=== PATIENT | male | born 1960 ===

== ENCOUNTER 2018-01-25 10:34 | Emergency (ER) | payer OTHER ==
[2018-01-25 10:40] VITALS: BMI 27.4
[2018-01-25 10:45] VITALS: BP 141/90; PULSE 74; RESP 18; TEMP 97.7; O2SAT 98
--- NOTE | 2018-01-25 11:30 | C.PDOC ---
History Of Present Illness 57 y/o with no significant PMHx presents for evaluation of left elbow pain and swelling developing since 01/18 after sustained blunt trauma at work. Patient reports he was seen at [facility], had x-ray done, showing no acute fracture. He admits to working since the accident and now the swelling has worsened over the left olecranon. Associated with intermittent tingling over the 4th and 5th left fingers. Otherwise patient denies obvious deformity, weakness, or skin changes to left arm. Time Seen by Provider: 01/25/18 10:57 Chief Complaint (Nursing): Upper Extremity Problem/Injury History Per: Patient History/Exam Limitations: no limitations Onset/Duration Of Symptoms: Days Current Symptoms Are (Timing): Worse Past Medical History Reviewed: Historical Data, Nursing Documentation, Vital Signs Vital Signs: Last Vital Signs Temp 97.7 F 01/25/18 10:40 Pulse 74 01/25/18 10:40 Resp 18 01/25/18 10:40 BP 141/90 01/25/18 10:40 Pulse Ox 98 01/25/18 10:40 Surgical History: Appendectomy, Cholecystectomy Family History: States: No Known Family Hx - Social History Hx Tobacco Use: No Hx Alcohol Use: Yes Hx Substance Use: No - Immunization History Hx Tetanus Toxoid Vaccination: No Hx Influenza Vaccination: No Hx Pneumococcal Vaccination: No Review Of Systems Constitutional: Negative for: Fever, Chills Musculoskeletal: Positive for: Arm Pain (and swelling to left elbow) Skin: Negative for: Rash, Lesions Neurological: Positive for: Numbness (intermittent tingling to left fingers). Negative for: Weakness, Incoordination Physical Exam - Physical Exam Appears: Well, Non-toxic, No Acute Distress Skin: Normal Color, Warm, No Rash, No Ecchymosis Extremity: Normal ROM (FAROM of Left elbow without difficulty or pain. No neurovascular deficits distally to pain. No skin changes, no erythema, no flactualnce.), Tenderness (to left elbow olecranon), Capillary Refill (less than 2sec to left digits), No Deformity, Swelling (moderate edema over the left olecranon) Pulses: Left Brachial: Normal, Left Radial: Normal Neurological/Psych: Oriented x3, Normal Speech, Normal Motor, Normal Sensation, Normal Reflexes Gait: Steady ED Course And Treatment O2 Sat by Pulse Oximetry: 98 (RA) Pulse Ox Interpretation: Normal - Other Rad XR L ELBOW X-Ray: Viewed By Me, Read By Radiologist Interpretation: FINDINGS: BONES: No acute fracture. Note is made of an entheseal ossification at the triceps insertion on the posterior olecranon. No other osseous abnormality is appreciated. JOINTS: Normal. No osteoarthritis. SOFT TISSUES: Soft tissue swelling noted over the dorsal aspect of the elbow consistent with olecranon bursitis. Please correlate clinically for possible superinfection. JOINT EFFUSION: None. OTHER FINDINGS: None. IMPRESSION: Findings consistent with olecranon bursitis. No evidence of fracture. Progress Note: Patient treated with 60 mg prednisone PO. X-ray taken of left elbow, shows bursitis. Informed pt of findings. HI wrap applied to left elbow, sling to left arm. Pt advised, ref. to f/u with Ortho in 2-3 days for re-eavl. return salomon Ed if any new chnages. Disposition Counseled Patient/Family Regarding: Studies Performed, Diagnosis, Need For Followup, Rx Given - Disposition Referrals: [facility] [Outside] Nagi Michelle MD [Staff Provider] - Disposition: HOME/ ROUTINE Disposition Time: 11:50 Condition: STABLE Additional Instructions: Hi wrap to left elbow, sling RICE-rest, ice, compression, elevation Take medication as prescribed Follow up with Orthopedist in 2-3 days for re-evaluation. return if any new changes. Prescriptions: Prednisone [Deltasone] 40 mg PO DAILY #6 tablet Instructions: Olecranon Bursitis (DC) Forms: [email or web address] (Wallisian), Work Excuse Print Language: PASHTO - Clinical Impression Clinical Impression: Olecranon bursitis - PA / PUBLIC RELATIONS COUNSELOR / Resident Statement MD/DO has reviewed & agrees with the documentation as recorded. - Scribe Statement The provider has reviewed the documentation as recorded by the Scribe (Mouna Sorenson) All medical record entries made by the Scribe were at my direction and personally dictated by me. I have reviewed the chart and agree that the record accurately reflects my personal performance of the history, physical exam, medical decision making, and the department course for this patient. I have also personally directed, reviewed, and agree with the discharge instructions and disposition.
--- NOTE | 2018-01-25 12:45 | RAD ---
Date of service: 01/25/2018 PROCEDURE: Radiographs of the left elbow. HISTORY: The COMPARISON: No prior. FINDINGS: BONES: No acute fracture. Note is made of an entheseal ossification at the triceps insertion on the posterior olecranon. No other osseous abnormality is appreciated. JOINTS: Normal. No osteoarthritis. SOFT TISSUES: Soft tissue swelling noted over the dorsal aspect of the elbow consistent with olecranon bursitis. Please correlate clinically for possible superinfection. JOINT EFFUSION: None. OTHER FINDINGS: None IMPRESSION: Findings consistent with olecranon bursitis. No evidence of fracture.
== END 2018-01-25 13:20 | disposition home or self-care (01) ==
LOC: C.ER 10:34
DX: M70.22 Olecranon bursitis, left elbow (principal)